=== PATIENT | male | born 1960 | race Caucasian/White ===

== ENCOUNTER 2018-08-26 11:45 | Emergency (ER) | payer OTHER, SELFPAY ==
[2018-08-26 11:46] VITALS: BP 134/115; PULSE 96; RESP 19; TEMP 36.7; O2SAT 95; BMI 47.2
--- NOTE | 2018-08-26 11:47 | EKG12_ITS ---
Test Reason : Blood Pressure : / mmHG Vent. Rate : 085 BPM Atrial Rate : 086 BPM P-R Int : 180 ms QRS Dur : 200 ms QT Int : 506 ms P-R-T Axes : 060 189 018 degrees QTc Int : 602 ms Atrial-sensed ventricular-paced rhythm Biventricular pacemaker detected Abnormal ECG Confirmed by HEMANTH ISAACS, MACK ([id number]), editor managing newspaper AALIYAH ESTES ([id number]) on 08/29/2018 4:50:09 PM Referred By: QUEENIE Confirmed By:MACK SAXENA MD
[2018-08-26 11:52] VITALS: PULSE 82
[2018-08-26 12:01] LABS: Bedside Glucose 379 mg/dL (70-110)
--- NOTE | 2018-08-26 12:05 | RAD_ITS ---
STUDY: X-RAY CHEST REASON FOR EXAM: Male, 57 years old. Arrhythmia TECHNIQUE: Single AP portable view of the chest. COMPARISON: None. FINDINGS: A 3-lead cardiac conduction device via the left subclavian vein identified with one lead terminating in the right atrium and 2 leads appear to be projecting over the right ventricle. Lateral view would better assess lead position. The lungs are clear and expanded. There is no demonstrated pleural abnormality. There is mild cardiac enlargement. Normal mediastinum and camille. Normal visualized pulmonary arteries. Normal visualized aortic arch and descending thoracic aorta. No acute bony process. There is no demonstrated abnormality of the visualized soft tissue structures of the upper abdomen. RAD/Chest 1 View (Portable) IMPRESSION: No acute airspace disease or pleural effusion. Cardiomegaly. Cardiac conduction device, as above. Electronically Signed: Homer Sharif MD at 12:26 EST , Service support ,
[2018-08-26 12:08] LABS: Absolute Lymphocyte Count 0.48 X10^3/ul (0.83-4.51); Absolute Neutrophil Count 4.5 X10^3/uL (2.0-7.7); Basophil# 0.03 X10^3/uL; Basophil% 0.5 % (0-1); Eosinophil# 0.16 X10^3/uL; Eosinophils% 2.8 % (0-5); Hematocrit 46.3 % (40-54); Hemoglobin 14.8 g/dl (13.0-16.5); Lymphocyte # 0.48 X10^3/ul (4.0); Lymphocyte % 8.5 % (19-41); Mean Corpuscular Volume 93.7 fL (80-94); Mean Platelet Vol. 11.3 fl (6.2-12.0); Monocyte# 0.54 X10^3/uL; Monocyte% 9.5 % (0-10); Neutrophil # 4.45 X10^3/uL (2.7-7.7); Neutrophil % 78.5 % (47-70); Platelet Count 183 K/mm3 (150-450); RBC Distribution Width CV 15.3 % (11.6-14.6); RBC Distribution Width SD 52.7 fl (35.1-43.9); Red Blood Count 4.94 M/mm3 (4.6-6.2); White Blood Count 5.7 K/mm3 (4.4-11.0)
[2018-08-26 12:09] LABS: Differential Indicated SCAN CRITERIA MET; POSITIVE COUNT NO; POSITIVE DIFFERENTIAL YES; POSITIVE MORPHOLOGY NO
--- NOTE | 2018-08-26 12:22 | ED.DCSUM_ITS ---
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 Patient states that he was at [employer]. He states he is walking around. He states he got acutely lightheaded and had tingling in his arm. He states that he felt like he was going to pass out, so he kneeled. He lost consciousness but thinks that his defibrillator went off. He states the last shot was 6 months. He states that today he has been in his normal state of health. Is been compliant with all his medications. He denies any fevers or chills. He denies any other systemic complaints. He did not have any chest pain prior to this. Physical Examination: Vital signs reviewed General: Well-nourished, well-developed Head: Normocephalic, atraumatic Eyes: Pupils equal and reactive, extraocular muscles intact Neck, supple, no lymphadenopathy Heart: Regular rate and rhythm Respiratory: No distress, clear bilaterally Abdomen: Soft, nontender, nondistended, no peritoneal signs Back: Nontender Extremities: Nontender, no edema, no cords Skin: Normal color no rash Neuro: Alert and oriented, no focal or lateralizing deficits Test Results: [] Emergency Department Course and Treatment: The patient is currently awake and alert. He did have his pacemaker interrogated. It looks like he had ventricular fibrillation and was appropriately shocked out of it back in 2 normal rhythm. His EKG demonstrates paced rhythm with a few PVCs. His QT is prolonged. Screening labs were obtained and were unremarkable. The patient has maintained his normal paced rhythm. I did discuss his care with Dr. mcneil, cardiology at [facility]. At this time, the patient will be transferred to [facility] for admission for cycling of his enzymes, review of his defibrillator records, and determination of new medical treatment for his V. fib. The patient is comfortable with this plan of care. Treatment Plan: [] Disposition: [] Impression: 1. Syncope 2. V. fib-resolved This note was generated with [employer] ([employer]ation software. It may contain incorrect words, spelling, and punctuation that were not noted in review of the chart prior to signing ED Disposition - Plan for ED Patient: Referrals: Andrew Kate MD [Primary Care Provider] -
[2018-08-26 12:26] LABS: ALB/GLOB Ratio 0.8 RATIO (0.9-2.4); AST(SGOT) 21 U/L (15-37); Alanine Aminotransfer ALT/SGPT 25 U/L (16-61); Albumin, Serum 3.4 g/dL (3.2-5.0); Alkaline Phosphatase 96 U/L (45-117); Anion Gap 10 (5-15); BUN 26 mg/dL (7-18); BUN/Creat Ratio 26.1 RATIO (10-20); Calcium,Total 9.1 mg/dL (8.5-10.1); Chloride 96 mmol/L (98-107); EST Glomerular Filtration Rate 82 mL/min (>60); Est Glom Filt Rate - Afr Amer 100 mL/min (>60); Estimated Creatinine Clearance 85.17 ml/min; Globulin 4.2 g/dL (2.2-4.2); Glucose 369 mg/dL (74-106); Magnesium 1.8 mg/dL (1.6-2.6); Potassium 3.5 mmol/L (3.5-5.1); Protein, Total 7.6 g/dL (6.4-8.2); Sodium Level 136 mmol/L (136-145)
[2018-08-26 12:29] VITALS: BP 109/72; PULSE 94; RESP 20
[2018-08-26 12:59] VITALS: BP 117/57; PULSE 85; RESP 20
== END 2018-08-26 13:15 | disposition home or self-care (01) ==
LOC: ED 12:22
PROVIDERS: Emergency Provider Emergency Medicine; Family Provider Family Medicine; PCP Family Medicine
DX: R55 Syncope and collapse (principal); I49.01 Ventricular fibrillation; I42.0 Dilated cardiomyopathy; I51.4 Myocarditis, unspecified; Z95.810 Presence of automatic (implantable) cardiac defibrillator; I25.10 Atherosclerotic heart disease of native coronary artery without angina pectoris; I11.0 Hypertensive heart disease with heart failure; I50.9 Heart failure, unspecified; Z79.4 Long term (current) use of insulin; Z79.02 Long term (current) use of antithrombotics/antiplatelets; Z79.899 Other long term (current) drug therapy
CPT/HCPCS: 71045; 80053; 82962; 83735; 84484; 85025; 93005; 96360; 99285; J7030; J7040; A4216